=== PATIENT | female | born 1960 | race Caucasian/White ===

== ENCOUNTER 2022-09-05 12:22 | Observation (INO) ==
[2022-09-05] MEDS ORDERED: MAGNESIUM SULF RIDER 4 GM/100 ML PREMIX IV PRN (13:00)
[2022-09-05] MEDS ORDERED: MAGNESIUM SULF RIDER 2 GM/50 ML PREMIX IV PRN (13:00)
[2022-09-05] MEDS ORDERED: POTASSIUM CHLORIDE 20 MEQ TABLET PO PRN (13:00)
[2022-09-05] MEDS ORDERED: ACETAMINOPHEN 325 MG TABLET PO PRN (13:00)
[2022-09-05] MEDS ORDERED: POTASSIUM CHLORIDE RIDER 10 MEQ/100 ML PREMIX IV PRN (13:00)
[2022-09-05] MEDS ORDERED: GLUCAGON 1 MG VIAL IM PRN (13:00)
[2022-09-05] MEDS ORDERED: DEXTROSE 10% 250 ML BAG IV PRN (13:00)
[2022-09-05] MEDS ORDERED: ONDANSETRON 4 MG/2 ML VIAL IV PRN (13:00)
[2022-09-05] MEDS ORDERED: PROMETHAZINE 25 MG/1 ML VIAL IM PRN (13:00)
[2022-09-05] MEDS ORDERED: hydrALAZINE 20 MG/1 ML VIAL IV PRN (13:05)
[2022-09-05 13:50] LABS: Basophils % 0.4 % (0.0-0.8); Eosinophils % 0.5 % (0.00-10.9); Hemoglobin 12.9 GM/DL (12.0-16.0); Immature Granulocytes % 0.4 %; Immature Granulocytes Absolute 0.03 #; Lymphocytes # 1.9 10*3/uL (1.4-4.0); Lymphocytes % 22.6 % (21.3-54.2); Mean Corpuscular HGB Conc 33.1 GM/DL (32-36); Mean Corpuscular Volume 85.7 FL (87-102); Mean Platelet Volume 10.3 FL (9.6-12.0); Monocytes # 0.9 10*3/uL (0.11-0.8); Monocytes % 11.1 % (1.7-12.7); Platelet Count 220 T/CUMM (130-400); Red Blood Count 4.55 MC/CUMM (3.8-5.5); Red Cell Distribution Width 14.2 % (9.3-17.3); White Blood Count 8.2 T/CUMM (4-12)
[2022-09-05 14:07] LABS: Calcium 9.4 MG/DL (8.5-10.1); Osmolality,Calculated 275.7 MOS/KG (273-304); Potassium 4.2 MMOL/L (3.5-5.1)
[2022-09-05 14:11] LABS: Albumin 3.8 G/DL (3.4-5.0); Bilirubin,Direct 0.15 MG/DL (0.0-0.20); Bilirubin,Indirect 0.4 MG/DL (0.0-1.0); Bilirubin,Total 0.5 MG/DL (0.20-1.00); Total Protein 8.2 G/DL (6.4-8.2)
[2022-09-05 14:12] LABS: Bacteria,Urine Occasional /HPF (Few); Bilirubin,Urine Negative (Negative); Blood, Urine Large mg/dL (Negative); Glucose,Urine (UA) Negative (Negative); Ketones,Urine 20 mg/dL (Negative); Mucus,Urine Occasional /LPF (Occasional); Nitrite,Urine Positive (Negative); Protein,Urine 30 mg/dL (Negative); RBC,Urine 13 /HPF (0-4); Squamous Epithelial Cell,Urine Occasional /HPF (0-10); Urine Appearance Slightly Hazy (Clear); Urine Color Yellow (Yellow); Urine Specific Gravity 1.015 (1.001-1.035); Urine Urobilinogen < 2.0 eU/dL (<2.0)
[2022-09-05] MEDS: PANTOPRAZOLE 40 MG TABLET PO SCH (15:47)
[2022-09-05] MEDS: SODIUM CHLORIDE 0.9% 1,000 ML IV SCH ×2 (17:20→23:49)
[2022-09-05] MEDS: INSULIN LISPRO 100 UNIT/ML SUBCUT SCH ×2 (17:21→20:12)
[2022-09-06 05:00] LABS: Basophils % 0.3 % (0.0-0.8); Eosinophils # 0.1 10*3/uL (0.0-0.87); Eosinophils % 0.5 % (0.00-10.9); Hematocrit 36.6 VOL% (35.7-47.0); Hemoglobin 12.1 GM/DL (12.0-16.0); Immature Granulocytes % 0.2 %; Immature Granulocytes Absolute 0.02 #; Lymphocytes # 1.9 10*3/uL (1.4-4.0); Lymphocytes % 19.9 % (21.3-54.2); Mean Corpuscular HGB Conc 33.1 GM/DL (32-36); Mean Corpuscular Volume 85.3 FL (87-102); Monocytes % 11.1 % (1.7-12.7); Platelet Count 228 T/CUMM (130-400); Red Blood Count 4.29 MC/CUMM (3.8-5.5); Red Cell Distribution Width 14.1 % (9.3-17.3); White Blood Count 9.3 T/CUMM (4-12)
[2022-09-06 05:20] LABS: Albumin 3.6 G/DL (3.4-5.0); Bilirubin,Total 0.6 MG/DL (0.20-1.00); Calcium 8.6 MG/DL (8.5-10.1); Osmolality,Calculated 275.5 MOS/KG (273-304); Potassium 3.2 MMOL/L (3.5-5.1); Total Protein 7.8 G/DL (6.4-8.2)
[2022-09-06] MEDS: SODIUM CHLORIDE 0.9% 1,000 ML IV SCH (07:03)
[2022-09-06] MEDS: INSULIN LISPRO 100 UNIT/ML SUBCUT SCH ×2 (07:39→11:35)
[2022-09-06] MEDS ORDERED: LACTATED RINGERS 1,000 ML IV SCH (08:00)
[2022-09-06] MEDS ORDERED: propofoL 200 MG/20 ML VIAL IV ONE (10:19)
[2022-09-06] MEDS ORDERED: LIDOCAINE 2% 5 ML VIAL ONE (10:19)
[2022-09-06] MEDS ORDERED: LOPERAMIDE 2 MG CAPSULE PO PRN (10:49)
[2022-09-06] MEDS ORDERED: cefTRIAXone 1,000 MG in SODIUM CHLORIDE 0.9% 100 ML IV SCH (11:00)
[2022-09-06 11:10] VITALS: BP 145/78
[2022-09-06] MEDS: PANTOPRAZOLE 40 MG TABLET PO SCH (11:34)
[2022-09-10 00:16] LABS: H pylori Specimen source STOOL; Helicobacter pylori Result Not Detected
== END 2022-09-06 14:28 | disposition home or self-care (01) ==
LOC: N.2W
PROVIDERS: ADMIT Family Medicine; ATTEND Family Medicine